=== PATIENT | male | born 1970 | race African-American/Black ===

== ENCOUNTER 2017-05-11 18:25 | Emergency (ER) | payer SELFPAY ==
--- NOTE | 2017-05-11 19:57 | ER Document Report ---
ED Medical Screen (RME) - General Chief Complaint: Syncope Stated Complaint: POSSIBLE SYNCOPE Time Seen by Provider: 05/11/17 19:55 Notes: Patient had a episode of "passing out" today while in the bathroom. He states that his vision went dark and then he lost consciousness. He states he also had 1 of these episodes on this past Tuesday. He states he also had 2 of these episodes in 2016. His states that in 2016 and today she noticed that each time the episodes happen patient has been under stress and having a "panic attack. TRAVEL OUTSIDE OF THE [place] IN LAST 30 DAYS: No - Related Data Allergies/Adverse Reactions: No Known Allergies Allergy (Verified 05/11/17 18:29) Past Medical History Renal/ Medical History: Denies: Hx Peritoneal Dialysis - Immunizations Hx Diphtheria, Pertussis, Tetanus Vaccination: Yes Physical Exam - Vital signs Vitals: Temp Pulse Resp BP Pulse Ox 97.9 F 67 18 131/76 H 96 05/11/17 18:30 05/11/17 18:30 05/11/17 18:30 05/11/17 18:30 05/11/17 18:30 Course - Vital Signs Vital signs: Temp Pulse Resp BP Pulse Ox 97.9 F 67 18 131/76 H 96 05/11/17 18:30 05/11/17 18:30 05/11/17 18:30 05/11/17 18:30 05/11/17 18:30
--- NOTE | 2017-05-11 20:24 | ER Document Report ---
ED Syncope and Near Syncope - General Chief Complaint: Syncope Stated Complaint: POSSIBLE SYNCOPE Time Seen by Provider: 05/11/17 19:55 Mode of Arrival: Ambulatory Information source: Patient TRAVEL OUTSIDE OF THE [place] IN LAST 30 DAYS: No - HPI Symptoms prior to episode: Dizziness, Lightheaded, Visual disturbance. No: Abdominal pain, Chest pain, Diarrhea, Headache, Palpitations, Racing heart, Short of breath, Sweaty Position/Activity at time of episode: Standing Details of activity: ONCE WHILE GETTING UP FROM TOILET, 2 OTHER EPISODES WHIL STANDING Quality of pain: No pain Context: Collapsed, Lost consciousness, Other - NO WITNESSES Duration of LOC (min): 2 Injury location: None Current symptoms: None/feels back to normal Similar symptoms previously: Yes - 2016, ONE EPISODE; 2 DAYS AGO, ONE EPISODE Recently seen / treated by doctor: No - Related Data Allergies/Adverse Reactions: No Known Allergies Allergy (Verified 05/11/17 18:29) Past Medical History - General Information source: Patient - Social History Smoking Status: Current Every Day Smoker Cigarette use (# per day): Yes - 1/2 pk/d Chew tobacco use (# tins/day): No Frequency of alcohol use: None Drug Abuse: None Lives with: Alone Family History: CAD, CVA, DM Patient has suicidal ideation: No Patient has homicidal ideation: No - Past Medical History Cardiac Medical History: Reports: None Pulmonary Medical History: Reports: None EENT Medical History: Reports: None Neurological Medical History: Reports: None Endocrine Medical History: Reports: None Renal/ Medical History: Reports: None. Denies: Hx Peritoneal Dialysis Malignancy Medical History: Reports None GI Medical History: Reports: None Musculoskeltal Medical History: Reports None Psychiatric Medical History: Reports: None Surgical Hx: Negative - Immunizations Hx Diphtheria, Pertussis, Tetanus Vaccination: Yes Review of Systems - Review of Systems Constitutional: Weakness - PRIOR TO SYNCOPE EENT: Other - DIM VISION PRECEDING SYNCOPE Cardiovascular: Syncope, Dizziness, Lightheaded. denies: Chest pain, Palpitations, Heart racing, Dyspnea Respiratory: No symptoms reported. denies: Hurts to breathe, Short of breath Gastrointestinal: No symptoms reported Genitourinary: No symptoms reported Musculoskeletal: No symptoms reported Skin: No symptoms reported Neurological/Psychological: See HPI Physical Exam - Vital signs Vitals: Temp Pulse Resp BP Pulse Ox 97.9 F 67 18 131/76 H 96 05/11/17 18:30 05/11/17 18:30 05/11/17 18:30 05/11/17 18:30 05/11/17 18:30 Interpretation: Normal. No: Hypotensive, Bradycardic, Tachycardic, Tachypneic - General General appearance: Appears well, Alert In distress: None - HEENT Head: Normocephalic Eyes: Normal Conjunctiva: Normal Ears: Normal Nasal: Normal Mouth/Lips: Normal Mucous membranes: Normal Pharynx: Normal Neck: Normal. No: Thyromegally - Respiratory Respiratory status: No respiratory distress Breath sounds: Normal - Cardiovascular Rhythm: Regular Heart sounds: Normal auscultation Murmur: No - Abdominal Inspection: Normal Distension: No distension Bowel sounds: Normal - Back Back: Normal - Extremities General upper extremity: Normal inspection General lower extremity: Normal inspection. No: Tender, Edema - Neurological Neuro grossly intact: Yes Cognition: Normal Orientation: AAOx4 - Psychological Associated symptoms: Normal affect, Normal mood - Skin Skin Temperature: Warm Skin Moisture: Dry Skin Color: Normal Skin Turgor: Elastic Course - Re-evaluation Re-evalutation: 05/11/17 22:45 Patient remains asymptomatic. Results of emergency department workup discussed with patient and significant other. Discussed option of admitting for observation and further workup of syncope. Patient elects to follow-up with PCP as outpatient. - Vital Signs Vital signs: Temp Pulse Resp BP Pulse Ox 97.9 F 56 L 20 115/70 100 05/11/17 18:30 05/11/17 22:26 05/11/17 22:01 05/11/17 22:26 05/11/17 22:01 - Laboratory Result Diagrams: 05/11/17 20:15 05/11/17 20:15 Laboratory results interpreted by me: 05/11/17 05/11/17 05/11/17 20:15 20:15 20:15 WBC 11.1 H Hgb 13.4 L MCH 26.8 L RDW 14.3 H Absolute Neutrophils 8.3 H Glucose 73 L TSH Urine Blood SMALL H 05/11/17 20:15 WBC Hgb MCH RDW Absolute Neutrophils Glucose TSH 0.46 L Urine Blood - Diagnostic Test Radiology reviewed: Image reviewed, Reports reviewed - EKG Interpretation by Me EKG shows normal: Sinus rhythm, [place], Intervals, QRS Complexes, ST-T Waves Rate: Normal Rhythm: NSR Voltage: Consistant with [facility] - BORDERLINE Discharge - Discharge Clinical Impression: Syncope and collapse Condition: Stable Disposition: HOME, SELF-CARE Instructions: Syncopal Episode ([facility]) Additional Instructions: REST, DRINK PLENTY OF FLUIDS. FOLLOW UP WITH YOUR PRIMARY CARE PROVIDER, CALL TOMORROW A.M. FOR APPT. RETURN TO E.R IF YOU GET WORSE IN ANY WAY, ANY TIME. Referrals: KIP MOLINA DO [Primary Care Provider] - Follow up tomorrow
[2017-05-11 20:29] LABS: ABSOLUTE EOSINOPHILS # (AUTO) 0.2 10^3/uL (0.0-0.6); ABSOLUTE LYMPHOCYTES (AUTO) 1.9 10^3/uL (0.5-4.7); ABSOLUTE MONOCYTES (AUTO) 0.7 10^3/uL (0.1-1.4); ABSOLUTE NEUT (AUTO) 8.3 10^3/uL (1.7-8.2); BASOPHILS % (AUTO) 0.4 % (0-2); EOSINOPHILS % (AUTO) 1.6 % (0-6); HEMATOCRIT 41.5 % (37.9-51.0); HEMOGLOBIN 13.4 g/dL (13.5-17.0); LYMPHOCYTES % (AUTO) 17.4 % (13-45); MEAN CORPUSCULAR HEMOGLOBIN 26.8 pg (27.0-33.4); MEAN CORPUSCULAR HGB CONC 32.3 g/dL (32.0-36.0); MEAN CORPUSCULAR VOLUME 83 fl (80-97); MONOCYTES % (AUTO) 6.4 % (3-13); PLATELET COUNT 273 10^3/uL (150-450); RED CELL DISTRIBUTION WIDTH 14.3 % (11.5-14.0); SEGMENTED NEUTROPHILS % (AUTO) 74.2 % (42-78); TOTAL CELLS COUNTED % (AUTO) 100 %; WHITE BLOOD COUNT 11.1 10^3/uL (4.0-10.5)
[2017-05-11 20:44] LABS: APPEARANCE,URINE SLIGHTLY-CLOUDY; BILIRUBIN,URINE NEGATIVE (NEGATIVE); COLOR,URINE YELLOW; GLUCOSE, URINE NEGATIVE (NEGATIVE); KETONES,URINE NEGATIVE (NEGATIVE); LEUKOCYTE ESTERASE,URINE NEGATIVE (NEGATIVE); NITRITE,URINE NEGATIVE (NEGATIVE); PROTEIN,URINE NEGATIVE (NEGATIVE); URINE SPECIFIC GRAVITY 1.015; UROBILINOGEN,URINE NEGATIVE mg/dL (<2.0)
[2017-05-11 20:45] LABS: ALANINE AMINOTRANSFERASE 29 U/L (21-72); ALBUMIN 4.5 g/dL (3.5-5.0); ALKALINE PHOSPHATASE 48 U/L (38-126); ANION GAP 11 (5-19); ASPARTATE AMINO TRANSFERASE 20 U/L (17-59); BILIRUBIN,DIRECT 0.3 mg/dL (0.0-0.4); BILIRUBIN,TOTAL 0.4 mg/dL (0.2-1.3); BLOOD UREA NITROGEN 14 mg/dL (7-20); CALCIUM 9.7 mg/dL (8.4-10.2); CARBON DIOXIDE 28 mmol/L (22-30); CHLORIDE 103 mmol/L (98-107); GLUCOSE 73 mg/dL (75-110); POTASSIUM 4.4 mmol/L (3.6-5.0); SODIUM 141.9 mmol/L (137-145); TOTAL PROTEIN 7.5 g/dL (6.3-8.2)
[2017-05-11 21:28] LABS: FREE T3 3.7 pg/mL (2.77-5.27); FREE T4 (FREE THYROXINE) 0.9 ng/dL (0.78-2.19)
[2017-05-11 21:42] LABS: THYROID STIMULATING HORMONE 0.46 uIU/mL (0.47-4.68)
--- NOTE | 2017-05-11 21:54 | RADIOLOGY REPORT (SQ) ---
EXAM DESCRIPTION: CHEST PA/LAT COMPLETED DATE/TIME: 05/11/2017 9:11 pm REASON FOR STUDY: SYNCOPE, ? [facility] COMPARISON: 05/12/2015 EXAM PARAMETERS: NUMBER OF VIEWS: two views TECHNIQUE: Digital Frontal and Lateral radiographic views of the chest acquired. RADIATION DOSE: NA LIMITATIONS: none FINDINGS: LUNGS AND PLEURA: No acute opacities, masses or pneumothorax. No pleural effusion. MEDIASTINUM AND HILAR STRUCTURES: Stable. HEART AND VASCULAR STRUCTURES: Heart normal size. No evidence for failure. BONES: No acute findings. HARDWARE: None in the chest. OTHER: No other significant finding. IMPRESSION: No acute findings. TECHNICAL DOCUMENTATION: JOB ID: [id number] [id number] 2010 [employer]- All Rights Reserved
[2017-05-11 22:59] VITALS: BP 109/78
--- NOTE | 2017-05-12 08:57 | EKG REPORT ---
SEVERITY:- ABNORMAL ECG - SINUS RHYTHM PROBABLE LEFT VENTRICULAR HYPERTROPHY : Confirmed by: John Ji 12-May-2017 08:56:14
== END 2017-05-11 23:03 | disposition home or self-care (01) ==
LOC: ER 18:25
DX: R55 Syncope and collapse (principal); R42 Dizziness and giddiness; F17.210 Nicotine dependence, cigarettes, uncomplicated
CPT/HCPCS: 36415; 71046; 80053; 81001; 84439; 84443; 84481; 85025; 93005; 93010; 99284